=== PATIENT | female | born 1990 | race African-American/Black ===

== ENCOUNTER 2021-09-28 10:15 | Emergency (ER) | payer MEDICAID ==
[~2021-09-28] VITALS: Ht 165.1 cm; Wt 81.2 kg
[2021-09-28] VITALS (7 sets, daily range): BP systolic 113–146; BP diastolic 55–69
[2021-09-28] MEDS ORDERED: IV NORMAL SALINE 1000ML BAG 1,000 ML IV SCH (11:00)
[2021-09-28] MEDS ORDERED: ONDANSETRON PF 4 MG/2 ML VIAL. IVP ONE (11:00)
[2021-09-28] MEDS ORDERED: FAMOTIDINE 20 MG/2 ML VIAL IVP ONE (11:00)
[2021-09-28 11:04] LABS: BASO # 0.1 x10^3/uL (0.0-0.2); BASO % 1 % (0-3); EOS % 0 % (0-3); LYMPH # 1.8 x10^3/uL (1.0-4.8); LYMPH % 25 % (24-48); MEAN CORPUSCULAR HEMOGLOBIN 17 pg (25-35); MEAN CORPUSCULAR HGB CONC 28 g/dL (31-37); MEAN CORPUSCULAR VOLUME 59 fL (79-100); MONO # 0.7 x10^3/uL (0.0-1.1); MONO % 10 % (0-9); NEUT # 4.6 x10^3/uL (1.8-7.7); NEUT % 64 % (31-73); PLATELET COUNT 124 x10^3/uL (140-400); RED BLOOD COUNT 2.92 x10^6/uL (3.50-5.40); RED CELL DISTRIBUTION WIDTH 23.6 % (11.5-14.5); WHITE BLOOD COUNT 7.2 x10^3/uL (4.0-11.0)
--- NOTE | 2021-09-28 11:10 | PHYS DOC ---
Past Medical History Past Surgical History: No Surgical History Smoking Status: Never Smoker Alcohol Use: None General Adult EDM: Chief Complaint: NAUSEA/VOMITING/DIARRHEA HPI: HPI: Patient is a 31 year old female who presents with 2 days of nausea, vomiting, generalized weakness, shortness of air, cough with yellow mucus production and dizziness with standing. Denies any past medical history. States she does not smoke or do any kind of drug use. She is not vaccinated for Covid. She states she has not taken any medication to help treat her symptoms. Review of Systems: Review of Systems: Constitutional: Denies fever or chills. [] Eyes: Denies change in visual acuity. [] HENT: Denies nasal congestion or sore throat. [] Respiratory: + cough or +shortness of breath. [] Cardiovascular: Denies chest pain or edema. [] GI: Denies abdominal pain, +nausea, +vomiting, denies bloody stools or +diarrhea x1. [] : Denies dysuria. [] Musculoskeletal: Denies back pain or joint pain. + Generalized weakness [] Integument: Denies rash. [] Neurologic: Denies headache, focal weakness or sensory changes. + Dizziness w ith standing [] Endocrine: Denies polyuria or polydipsia. [] Lymphatic: Denies swollen glands. [] Psychiatric: Denies depression or anxiety. [] Heart Score: C/O Chest Pain: No HEART Score for Chest Pain: HEART Score for Chest Pain Response (Comments) Value History Slighlty/Non-Suspicious 0 ECG Nonspecific Repolarizatio 1 Age < 45 0 Risk Factors 1 or 2 Risk Factors 1 Troponin < Normal Limit 0 Total 2 Current Medications: Current Medications Medications (Trade) Dose Ordered Sig/Yumi Start Time Stop Time Status Last Admin Dose Admin Famotidine (Pepcid Vial) 20 mg 1X ONCE 09/28/21 11:00 09/28/21 11:01 UNV Ondansetron HCl (Zofran) 4 mg 1X ONCE 09/28/21 11:00 09/28/21 11:01 UNV Sodium Chloride 1,000 ml @ 1,000 mls/hr Q1H 09/28/21 11:00 09/28/21 11:59 UNV Physical Exam: PE: Constitutional: Well developed, well nourished, no acute distress, non-toxic appearance. [] HENT: Normocephalic, atraumatic, bilateral external ears normal, oropharynx moist, no oral exudates, nose normal. [] Eyes: PERRLA, EOMI, conjunctiva normal, no discharge. [] Neck: Normal range of motion, no tenderness, supple, no stridor. [] Cardiovascular:Heart rate regular rhythm, no murmur [] Lungs & Thorax: Bilateral upper breath sounds clear and lower diminished to auscultation [] Abdomen: Bowel sounds normal, soft, no tenderness, no masses, no pulsatile masses. [] Skin: Warm, dry, no erythema, no rash. [] Back: No tenderness, no CVA tenderness. [] Extremities: No tenderness, no cyanosis, no clubbing, ROM intact, no edema. [] Neurologic: Alert and oriented X 3, normal motor function, normal sensory function, no focal deficits noted. [] Psychologic: Affect normal, judgement normal, mood normal. [] Current Patient Data: Labs: Laboratory Tests Test 09/28/21 10:57 POC Urine HCG, Qualitative Hcg negative (Negative) Vital Signs: Vital Signs Date Time Temp Pulse Resp B/P (MAP) Pulse Ox O2 Delivery O2 Flow Rate FiO2 09/28/21 10:30 98.2 94 12 128/74 (92 100 Room Air 98.2 EKG: EK and read by Dr. Kingston as sinus rhythm with ST depression and T wave inversions inferiorly. No STEMI. Radiology/Procedures: Radiology/Procedures: [] Impression: [facility] [address] [place] [address] IMAGING REPORT Signed PATIENT: PORFIRIO BUTLER ACCOUNT: [id number] : 1990 LOCATION: ER AGE: 31 SEX: F EXAM STATUS: REG ER ORD. PHYSICIAN: SONAL LAMBERT APRN REASON: PRODUCTIVE COUGH WITH SOA PROCEDURE: PORTABLE CHEST 1V EXAM: AP View of the chest DATE: 09/28/2021 10:57 AM INDICATION: Reason: PRODUCTIVE COUGH WITH SOA / Spl. Instructions: / History: COMPARISON: No Prior FINDINGS: The heart is not enlarged. Mediastinal and hilar contours are normal. No focal parenchymal airspace opacity. No pleural effusion or pneumothorax. Curvature of the thoracolumbar spine. IMPRESSION: 1. No radiographic evidence for acute cardiopulmonary process. Electronically signed by: Judson Rubio MD (09/28/2021 11:46 AM) [facility] DICTATED and SIGNED BY: JUDSON RUBIO MD DATE: 09/28/21 [id number] [facility] [address] [place] [address] IMAGING REPORT Signed PATIENT: PORFIRIO BUTLER ACCOUNT: [id number] : 1990 LOCATION: ER AGE: 31 SEX: F EXAM STATUS: REG ER ORD. PHYSICIAN: SONAL LAMBERT APRN REASON: NAUSEA, VOMITING PROCEDURE: CT ABD PELV W/ IV CONTRST ONLY EXAM: CT Abdomen and Pelvis with IV contrast CLINICAL HISTORY: Reason: NAUSEA, VOMITING COMPARISON: none TECHNIQUE: Helical CT of the abdomen and pelvis was performed following the administration of intravenous contrast. Axial, coronal and sagittal reformatted images were generated. PQRS compliance statement - One or more of the following individualized dose reduction techniques were utilized for this study: 1. Automated exposure control 2. Adjustment of the mA and/or kV according to patient size 3. Use of iterative reconstruction technique FINDINGS: Lower Chest: Lung bases are clear. Abdomen and Pelvis: Liver, gallbladder, spleen and adrenal glands are unremarkable. Pancreas is normal. Symmetric nephrograms. No focal renal lesion. No hydronephrosis. No hydroureter. Bladder is unremarkable. Moderate colonic stool content is seen. No small or large bowel dilatation. Appendix is not convincingly seen. No pericecal inflammatory change. Uterus is enlarged with large peripherally calcified, likely uterine fibroid measuring approximately 6.6 cm. Right adnexal hypodense lesion measures 4.9 x 4.1 cm, possibly cystic. No abdominal or pelvic ascites. No abdominal or pelvic lymphadenopathy. Bones: No aggressive osseous lesion. IMPRESSION: Moderate colonic stool content. No bowel obstruction. 4.9 cm right adnexal lesion, possibly cystic and should be further assessed by ultrasound. Peripherally calcified uterine lesion likely uterine fibroid. Electronically signed by: Judson Rubio MD (09/28/2021 12:33 PM) [facility] DICTATED and SIGNED BY: JUDSON RUBIO MD DATE: 09/28/21 [id number] 0 Course & Med Decision Making: Course & Med Decision Making Pertinent Labs and Imaging studies reviewed. (See chart for details) COVID-19 CRITERIA: The patient was evaluated during the global COVID-19 pandemic, and that diagnosis was suspected/considered upon their initial presentation. Their evaluation, treatment and testing was consistent with current guidelines for patients who present with complaints or symptoms that may be related to COVID-19. See HPI. Alert and oriented x4. Speaks in full clear sentences. Skin pink warm and dry. Abdomen soft and nontender. Lungs are clear in upper lobes and diminished in lower lobes. Orthostatics normal. Patient hemoglobin is 4.8 and hematocrit 17.3. I went and spoke with patient she states she does have heavy periods right now with only very light. She states she does have fibroids. 2 Units of blood ordered. Covid Positive. Admitted to hospitalist. Patient received 1 unit of blood and half of the iron infusion and she is needing to leave to go pickle maker her children. Patient is signing out AMA. Dr. Montelongo did go in and speak with the patient and she understands that by leaving she risks , and or disability. She states her understanding of this. He states to have her sign out AMA. [] Mina Disclaimer: Mina Disclaimer: This electronic medical record was generated, in whole or in part, using a voice recognition dictation system. COVID-19 Patient Risks: Age 65 or older: No Sign of co-morbidity: Yes Exp to person + for COVID: No Exp to PUI: No Travel from affected area: No Lower respiratory symptoms: Yes Fever: No Other: Yes (N,V) PPE Use: Full PPE with N95 mask or PAPR: Yes Departure Departure Impression: Primary Impression: Anemia Qualified Codes: D64.9 - Anemia, unspecified Additional Impressions: COVID-19 Uterine fibroid Qualified Codes: D25.9 - Leiomyoma of uterus, unspecified Left against medical advice Disposition: LEFT AGAINST MEDICAL ADVICE Admitting Physician: HIMS Condition: STABLE Referrals: NO PCP (PCP) LEONARDA CARR MD Patient Instructions: Anemia, FAQs, Iron Deficiency Anemia, Uterine Fibroid, [id number] Additional Instructions: Follow-up with primary care or the visually impaired teacher I have referred you to. Or visually impaired teacher of your choosing. Plenty of fluids. Take medication with food. Scripts Ferrous Sulfate (IRON) 325 Mg Tablet 1 TAB PO BID for 30 Days, #60 TAB 0 Refills Prov: SONAL LAMBERT APRN 09/28/21 SONAL LAMBERT APRN Sep 28, 2021 11:10
[2021-09-28 11:14] LABS: CALCIUM 8.9 mg/dL (8.5-10.1); GFR 77.3; POTASSIUM 4.2 mmol/L (3.5-5.1)
[2021-09-28 11:14] LABS: BARBITURATES NEG (NEG); BENZODIAZEPINES NEG (NEG); BILIRUBIN,URINE NEGATIVE (NEG); CANNABINOIDS NEG (NEG); CLARITY,URINE CLEAR; COCAINE NEG (NEG); COLOR,URINE YELLOW; METHADONE NEG (NEG); NITRITE,URINE NEGATIVE (NEG); OPIATES NEG (NEG); PH,URINE 5.5 (<5.0-8.0); PHENCYCLIDINE NEG (NEG); PROTEIN,URINE 100 mg/dL (NEG-TRACE); UROBILINOGEN,URINE 0.2 mg/dL (0.2 mg/dL)
[2021-09-28 11:15] LABS: AMPHETAMINE/METHAMPHETAMINE NEG (NEG)
[2021-09-28 11:20] LABS: ALBUMIN 3.8 g/dL (3.4-5.0); ALBUMIN/GLOBULIN RATIO 0.8 (1.0-1.7); HEMATOCRIT 17.3 % (36.0-47.0); HEMOGLOBIN 4.8 g/dL (12.0-15.5); MAGNESIUM 2.4 mg/dL (1.8-2.4); TOTAL BILIRUBIN 0.2 mg/dL (0.2-1.0); TOTAL PROTEIN 8.5 g/dL (6.4-8.2)
[2021-09-28] MEDS ORDERED: IOHEXOL 300 MG/ML 100ML VIAL. IV ONE (11:30)
[2021-09-28] MEDS ORDERED: CONTRAST GIVEN. MC PRN (11:30)
[2021-09-28 11:33] LABS: BACTERIA,URINE FEW /HPF (0-FEW); WBC,URINE RARE /HPF (0-4)
--- NOTE | 2021-09-28 11:49 | RAD ---
EXAM: AP View of the chest DATE: 09/28/2021 10:57 AM INDICATION: Reason: PRODUCTIVE COUGH WITH SOA / Spl. Instructions: / History: COMPARISON: No Prior FINDINGS: The heart is not enlarged. Mediastinal and hilar contours are normal. No focal parenchymal airspace opacity. No pleural effusion or pneumothorax. Curvature of the thoracolumbar spine. IMPRESSION: 1. No radiographic evidence for acute cardiopulmonary process. Electronically signed by: Judson Philippe MD (09/28/2021 11:46 AM) [facility]
--- NOTE | 2021-09-28 12:35 | RAD ---
EXAM: CT Abdomen and Pelvis with IV contrast CLINICAL HISTORY: Reason: NAUSEA, VOMITING COMPARISON: none TECHNIQUE: Helical CT of the abdomen and pelvis was performed following the administration of intrave nous contrast. Axial, coronal and sagittal reformatted images were generated. PQRS compliance statement - One or more of the following individualized dose reduction techniques wer e utilized for this study: 1. Automated exposure control 2. Adjustment of the mA and/or kV according to patient size 3. Use of iterative reconstruction technique FINDINGS: Lower Chest: Lung bases are clear. Abdomen and Pelvis: Liver, gallbladder, spleen and adrenal glands are unremarkable. Pancreas is normal. Symmetric nephrograms. No focal renal lesion. No hydronephrosis. No hydroureter. Bladder is unremarka ble. Moderate colonic stool content is seen. No small or large bowel dilatation. Appendix is not convincin gly seen. No pericecal inflammatory change. Uterus is enlarged with large peripherally calcified, likely uterine fibroid measuring approximately 6.6 cm. Right adnexal hypodense lesion measures 4.9 x 4.1 cm, possibly cystic. No abdominal or pelvic ascites. No abdominal or pelvic lymphadenopathy. Bones: No aggressive osseous lesion. IMPRESSION: Moderate colonic stool content. No bowel obstruction. 4.9 cm right adnexal lesion, possibly cystic and should be further assessed by ultrasound. Peripherally calcified uterine lesion likely uterine fibroid. Electronically signed by: Judson Philippe MD (09/28/2021 12:33 PM) [facility]
[2021-09-28 12:47] LABS: PROTHROMBIN TIME PATIENT 13.6 SEC (11.7-14.0)
[2021-09-28 12:52] LABS: PLT ESTIMATE ADEQUATE (ADEQUATE)
[2021-09-28 12:53] LABS: ANISOCYTOSIS PRESENT; HYPOCHROMIA PRESENT; MICROCYTOSIS PRESENT; OVALOCYTES PRESENT
[2021-09-28] MEDS ORDERED: IRON SUCROSE COMPLEX 500 MG in IV NORMAL SALINE 250ML 250 ML IV ONE (14:00)
--- NOTE | 2021-09-28 14:51 | EKG ---
[facility] [address] [place] [address] Test Date: 2021-09-28 Test Time: 11:04:08 Pat Name: PORFIRIO BUTLER Department: Room: Gender: F [employer]earoom Hostess: : 1990 Requested By: SONAL LAMBERT Order Number: [id number] Reading MD: Lopez Mcgovern Measurements Intervals [place]y Rate: 83 P: 46 MD: 148 QRS: 11 QRSD: 90 T: -9 QT: 344 QTc: 405 Interpretive Statements SINUS RHYTHM T ABNORMALITY IN INFERIOR LEADS Electronically Signed On 09-30-2021 10:27:37 BUSINESS ARCHITECT by Lopez Mcgovern
--- NOTE | 2021-09-28 16:05 | PDOC1 ---
History and Physical Date of Admission Date of Admission DATE: 09/28/21 TIME: 16:03 Source Source: Chart review, Patient History of Present Illness History of Present Illness Ms. Ibarra is a 31 year old female who presents with 2 days of nausea, vomiting, generalized weakness, shortness of air, cough with yellow mucus production and dizziness with standing. Denies any past medical history. States she does not smoke or do any kind of drug use. She is not vaccinated for Covid. She states she has not taken any medication to help treat her symptoms. Past Medical History Cardiovascular: No pertinent hx Pulmonary: No pertinent hx GI: No pertinent hx Heme/Onc: No pertinent hx Past Surgical History Past Surgical History: No pertinent history Family History Family History: No Significant Social History Smoke: No ALCOHOL: none Drugs: None Current Problem List Problem List Problems Medical Problems: (1) Anemia Status: Acute (2) COVID-19 Status: Acute (3) Uterine fibroid Status: Acute Current Medications Current Medications Current Medications Sodium Chloride 1,000 ml @ 1,000 mls/hr Q1H IV Last administered on 09/28/21at 11:10; Start 09/28/21 at 11:00; Stop 09/28/21 at 11:59; Status DC Ondansetron HCl (Zofran) 4 mg 1X ONCE IVP Last administered on 09/28/21at 11:10; Start 09/28/21 at 11:00; Stop 09/28/21 at 11:05; Status DC Famotidine (Pepcid Vial) 20 mg 1X ONCE IVP Last administered on 09/28/21at 11:10; Start 09/28/21 at 11:00; Stop 09/28/21 at 11:05; Status DC Iohexol (Omnipaque 300 Mg/ml) 75 ml 1X ONCE IV Last administered on 09/28/21at 11:50; Start 09/28/21 at 11:30; Stop 09/28/21 at 11:31; Status DC Info (CONTRAST GIVEN -- Rx MONITORING) 1 each PRN DAILY PRN MC SEE COMMENTS; Start 09/28/21 at 11:30; Stop 09/30/21 at 11:29 Iron Sucrose 500 mg/Sodium Chloride 275 ml @ 78.571 mls/ hr 1X ONCE IV Last administered on 09/28/21at 14:02; Start 09/28/21 at 14:00; Stop 09/28/21 at 17:29 Allergies Allergies: Coded Allergies: Fish Containing Products (Verified Allergy, Unknown, 09/28/21) shellfish derived (Verified Allergy, Unknown, 09/28/21) Uncoded Allergies: SEAFOOD (Allergy, Unknown, UNKNOWN, 09/28/21) ROS General: YES: Fatigue, Malaise PSYCHOLOGICAL ROS: No: Anxiety, Behavioral Disorder, Concentration difficultie, Decreased libido, Depression, Disorientation, Hallucinations, Hostility, Irritablity, Memory difficulties, Mood Swings, Obsessive thoughts, Physical abuse, Sexual abuse, Sleep disturbances, Suicidal ideation, Other Eyes: No Blurry vision, No Decreased vision, No Double vision, No Dry eyes, No Excessive tearing, No Eye Pain, No Itchy Eyes, No Loss of vision, No Photophobia, No Scotomata, No Uses contacts, No Uses glasses, No Other HEENT: YES: Heacaches Respiratory: No: Cough, Hemoptysis, Orthopnea, Pleuritic Pain, Shortness of breath, SOB with excertion, Sputum Changes, Stridor, Tachypnea, Wheezing, Other Cardiovascular: No Chest Pain, No Palpitations, No Orthopnea, No Paroxysmal Noc. Dyspnea, No Edema, No Lt Headedness, No Other Gastrointestinal: No Nausea, No Vomiting, No Abdominal Pain, No Diarrhea, No Constipation, No Melena, No Hematochezia, No Other Genitourinary: No Dysuria, No Frequency, No Incontinence, No Hematuria, No Retention, No Discharge, No Urgency, No Pain, No Flank Pain, No Other, No , No , No , No , No , No , No Neurological: No Behavorial Changes, No Bowel/Bladder ControlChng, No Confusion, No Dizziness, No Gait Disturbance, No Headaches, No Impaired Coord/balance, No Memory Loss, No Numbness/Tingling, No Seizures, No Speech Problems, No Tremors, No Visual Changes, No Weakness, No Other Skin: No Dry Skin, No Eczema, No Hair Changes, No Lumps, No Mole Changes, No Mottling, No Nail Changes, No Pruritus, No Rash, No Skin Lesion Changes, No Other, No Acne Physical Exam General: Alert, Cooperative, mild distress HEENT: PERRLA Lungs: Clear to auscultation Rectal Exam: not examined Extremities: No clubbing, Normal pulses Neuro: Normal gait, Normal tone, Cranial nerves 3-12 NL Psych/Mental Status: Mood NL Vitals Vitals Vital Signs Date Time Temp Pulse Resp B/P (MAP) Pulse Ox O2 Delivery O2 Flow Rate FiO2 09/28/21 16:01 97.9 73 15 128/65 97.9 09/28/21 11:30 100 Room Air Labs Labs Laboratory Tests Test 09/28/21 10:40 09/28/21 10:55 09/28/21 10:57 09/28/21 11:17 Urine Collection Type Unknown Urine Color Yellow Urine Clarity Clear Urine pH 5.5 (<5.0-8.0) Urine Specific [place] 1.025 (1.000-1.030) Urine Protein 100 mg/dL (NEG-TRACE) Urine Glucose (UA) Negative mg/dL (NEG) Urine Ketones (Stick) Negative mg/dL (NEG) Urine Blood Moderate (NEG) Urine Nitrite Negative (NEG) Urine Bilirubin Negative (NEG) Urine Urobilinogen Dipstick 0.2 mg/dL (0.2 mg/dL) Urine Leukocyte Esterase Negative (NEG) Urine RBC 6-10 /HPF (0-2) Urine WBC Rare /HPF (0-4) Urine Squamous Epithelial Cells Few /LPF Urine Bacteria Few /HPF (0-FEW) Urine Mucus Slight /LPF Urine Opiates Screen Neg (NEG) Urine Methadone Screen Neg (NEG) Urine Barbiturates Neg (NEG) Urine Phencyclidine Screen Neg (NEG) Urine Amphetamine/Methamphetamine Neg (NEG) Urine Benzodiazepines Screen Neg (NEG) Urine Cocaine Screen Neg (NEG) Urine Cannabinoids Screen Neg (NEG) Urine Ethyl Alcohol Neg (NEG) White Blood Count 7.2 x10^3/uL (4.0-11.0) Red Blood Count 2.92 x10^6/uL (3.50-5.40) Hemoglobin 4.8 g/dL (12.0-15.5) Hematocrit 17.3 % (36.0-47.0) Mean Corpuscular Volume 59 fL (79-100) Mean Corpuscular Hemoglobin 17 pg (25-35) Mean Corpuscular Hemoglobin Concent 28 g/dL (31-37) Red Cell Distribution Width 23.6 % (11.5-14.5) Platelet Count 124 x10^3/uL (140-400) Neutrophils (%) (Auto) 64 % (31-73) Lymphocytes (%) (Auto) 25 % (24-48) Monocytes (%) (Auto) 10 % (0-9) Eosinophils (%) (Auto) 0 % (0-3) Basophils (%) (Auto) 1 % (0-3) Neutrophils # (Auto) 4.6 x10^3/uL (1.8-7.7) Lymphocytes # (Auto) 1.8 x10^3/uL (1.0-4.8) Monocytes # (Auto) 0.7 x10^3/uL (0.0-1.1) Eosinophils # (Auto) 0.0 x10^3/uL (0.0-0.7) Basophils # (Auto) 0.1 x10^3/uL (0.0-0.2) Platelet Estimate Adequate (ADEQUATE) Hypochromasia Present Anisocytosis Present Microcytosis Present Macrocytosis Present Ovalocytes Present Sodium Level 141 mmol/L (136-145) Potassium Level 4.2 mmol/L (3.5-5.1) Chloride Level 102 mmol/L (98-107) Carbon Dioxide Level 25 mmol/L (21-32) Anion Gap 14 (6-14) Blood Urea Nitrogen 12 mg/dL (7-20) Creatinine 1.0 mg/dL (0.6-1.0) Estimated GFR (Cockcroft-Gault) 77.3 BUN/Creatinine Ratio 12 (6-20) Glucose Level 108 mg/dL (70-99) Calcium Level 8.9 mg/dL (8.5-10.1) Magnesium Level 2.4 mg/dL (1.8-2.4) Iron Level 31 ug/dL (50-170) Total Iron Binding Capacity 475 ug/dL (250-450) Iron Saturation 7 % (15-34) Ferritin 13 ng/mL (8-252) Total Bilirubin 0.2 mg/dL (0.2-1.0) Aspartate Amino Transf (AST/SGOT) 26 U/L (15-37) Alanine Aminotransferase (ALT/SGPT) 21 U/L (14-59) Alkaline Phosphatase 62 U/L (46-116) Total Protein 8.5 g/dL (6.4-8.2) Albumin 3.8 g/dL (3.4-5.0) Albumin/Globulin Ratio 0.8 (1.0-1.7) Lipase 53 U/L (73-393) Bedside Urine HCG, Qualitative Hcg negative (Negative) SARS-CoV-2 Antigen (Rapid) Positive (NEGATIVE) Test 09/28/21 11:18 09/28/21 12:15 Troponin I High Sensitivity 7 ng/L (4-50) Prothrombin Time 13.6 SEC (11.7-14.0) Prothromb Time International Ratio 1.0 (0.8-1.1) Activated Partial Thromboplast Time 25 SEC (24-38) Laboratory Tests Test 09/28/21 10:40 09/28/21 10:55 09/28/21 10:57 09/28/21 11:17 Urine Collection Type Unknown Urine Color Yellow Urine Clarity Clear Urine pH 5.5 (<5.0-8.0) Urine Specific [place] 1.025 (1.000-1.030) Urine Protein 100 mg/dL (NEG-TRACE) Urine Glucose (UA) Negative mg/dL (NEG) Urine Ketones (Stick) Negative mg/dL (NEG) Urine Blood Moderate (NEG) Urine Nitrite Negative (NEG) Urine Bilirubin Negative (NEG) Urine Urobilinogen Dipstick 0.2 mg/dL (0.2 mg/dL) Urine Leukocyte Esterase Negative (NEG) Urine RBC 6-10 /HPF (0-2) Urine WBC Rare /HPF (0-4) Urine Squamous Epithelial Cells Few /LPF Urine Bacteria Few /HPF (0-FEW) Urine Mucus Slight /LPF Urine Opiates Screen Neg (NEG) Urine Methadone Screen Neg (NEG) Urine Barbiturates Neg (NEG) Urine Phencyclidine Screen Neg (NEG) Urine Amphetamine/Methamphetamine Neg (NEG) Urine Benzodiazepines Screen Neg (NEG) Urine Cocaine Screen Neg (NEG) Urine Cannabinoids Screen Neg (NEG) Urine Ethyl Alcohol Neg (NEG) White Blood Count 7.2 x10^3/uL (4.0-11.0) Red Blood Count 2.92 x10^6/uL (3.50-5.40) Hemoglobin 4.8 g/dL (12.0-15.5) Hematocrit 17.3 % (36.0-47.0) Mean Corpuscular Volume 59 fL (79-100) Mean Corpuscular Hemoglobin 17 pg (25-35) Mean Corpuscular Hemoglobin Concent 28 g/dL (31-37) Red Cell Distribution Width 23.6 % (11.5-14.5) Platelet Count 124 x10^3/uL (140-400) Neutrophils (%) (Auto) 64 % (31-73) Lymphocytes (%) (Auto) 25 % (24-48) Monocytes (%) (Auto) 10 % (0-9) Eosinophils (%) (Auto) 0 % (0-3) Basophils (%) (Auto) 1 % (0-3) Neutrophils # (Auto) 4.6 x10^3/uL (1.8-7.7) Lymphocytes # (Auto) 1.8 x10^3/uL (1.0-4.8) Monocytes # (Auto) 0.7 x10^3/uL (0.0-1.1) Eosinophils # (Auto) 0.0 x10^3/uL (0.0-0.7) Basophils # (Auto) 0.1 x10^3/uL (0.0-0.2) Platelet Estimate Adequate (ADEQUATE) Hypochromasia Present Anisocytosis Present Microcytosis Present Macrocytosis Present Ovalocytes Present Sodium Level 141 mmol/L (136-145) Potassium Level 4.2 mmol/L (3.5-5.1) Chloride Level 102 mmol/L (98-107) Carbon Dioxide Level 25 mmol/L (21-32) Anion Gap 14 (6-14) Blood Urea Nitrogen 12 mg/dL (7-20) Creatinine 1.0 mg/dL (0.6-1.0) Estimated GFR (Cockcroft-Gault) 77.3 BUN/Creatinine Ratio 12 (6-20) Glucose Level 108 mg/dL (70-99) Calcium Level 8.9 mg/dL (8.5-10.1) Magnesium Level 2.4 mg/dL (1.8-2.4) Iron Level 31 ug/dL (50-170) Total Iron Binding Capacity 475 ug/dL (250-450) Iron Saturation 7 % (15-34) Ferritin 13 ng/mL (8-252) Total Bilirubin 0.2 mg/dL (0.2-1.0) Aspartate Amino Transf (AST/SGOT) 26 U/L (15-37) Alanine Aminotransferase (ALT/SGPT) 21 U/L (14-59) Alkaline Phosphatase 62 U/L (46-116) Total Protein 8.5 g/dL (6.4-8.2) Albumin 3.8 g/dL (3.4-5.0) Albumin/Globulin Ratio 0.8 (1.0-1.7) Lipase 53 U/L (73-393) Bedside Urine HCG, Qualitative Hcg negative (Negative) SARS-CoV-2 Antigen (Rapid) Positive (NEGATIVE) Test 09/28/21 11:18 09/28/21 12:15 Troponin I High Sensitivity 7 ng/L (4-50) Prothrombin Time 13.6 SEC (11.7-14.0) Prothromb Time International Ratio 1.0 (0.8-1.1) Activated Partial Thromboplast Time 25 SEC (24-38) VTE Prophylaxis Ordered VTE Prophylaxis Devices: No VTE Pharmacological Prophylaxi: No Assessment/Plan Assessment/Plan COVID 19 - not vaccinated symptomatic anemia, iron def. 2 u prbc and 500 iv iron ordered she has asked to leave AMA, her 3 and 6 year old kids need care, her Exs mom cannot watch them much longer 15 min discussion Justifications for Admission Other Justification LESA VALDEZ MD Sep 28, 2021 16:05
[2021-09-28] MEDS ORDERED: FERR-36 PO (16:08)
== END 2021-09-28 16:13 | disposition left against medical advice (07) ==
LOC: ER 10:15
DX: U07.1 COVID-19 (principal); D25.9 Leiomyoma of uterus, unspecified; D64.9 Anemia, unspecified
CPT/HCPCS: 36415; 36430; 71045; 74177; 80053; 80307; 81001; 81025; 82728; 83540; 83550; 83690; 83735; 84484; 85025; 85610; 85730; 86850; 86900; 86901; 86920; 87426; 93005; 96361; 96365; 96366; 96375; 99285; J1756; J2405; J3490; J7030; J7050; P9016; Q9967

== ENCOUNTER 2022-02-13 18:51 | Inpatient (IN) | payer SELFPAY ==
[~2022-02-13] VITALS: Ht 165.1 cm; Wt 59.0 kg
[~2022-02-13 18:51] MED LIST: FERR-36 PO
[2022-02-13 20:56] LABS: BASO # 0.1 x10^3/uL (0.0-0.2); BASO % 1 % (0-3); EOS # 0.1 x10^3/uL (0.0-0.7); EOS % 1 % (0-3); HEMATOCRIT 22.9 % (36.0-47.0); LYMPH # 1.8 x10^3/uL (1.0-4.8); LYMPH % 27 % (24-48); MEAN CORPUSCULAR HEMOGLOBIN 19 pg (25-35); MEAN CORPUSCULAR HGB CONC 29 g/dL (31-37); MEAN CORPUSCULAR VOLUME 65 fL (79-100); MONO # 0.5 x10^3/uL (0.0-1.1); MONO % 7 % (0-9); NEUT # 4.3 x10^3/uL (1.8-7.7); NEUT % 64 % (31-73); PLATELET COUNT 188 x10^3/uL (140-400); RED BLOOD COUNT 3.54 x10^6/uL (3.50-5.40); RED CELL DISTRIBUTION WIDTH 22.8 % (11.5-14.5); WHITE BLOOD COUNT 6.8 x10^3/uL (4.0-11.0)
[2022-02-13 21:00] LABS: HEMOGLOBIN 6.6 g/dL (12.0-15.5)
[2022-02-13 21:09] LABS: CALCIUM 8.7 mg/dL (8.5-10.1); GFR 77.3; POTASSIUM 3.2 mmol/L (3.5-5.1)
[2022-02-13 21:29] LABS: ANISOCYTOSIS MOD; HYPOCHROMIA MOD; MICROCYTOSIS SLIGHT; PLT ESTIMATE ADEQUATE (ADEQUATE)
--- NOTE | 2022-02-13 22:23 | RAD ---
Transvaginal zone. The HISTORY: Bleeding Transvaginal examination was performed and multiple static images were obtained. The endometrium measures 1.5 cm in thickness. There is a yolk sac and gestational sac but no po le. The mean sac diameter of 6.1 mm corresponds with a 5 week 2 day gestational age and estimated chyna e confinement of October 14, 2022. The LMP of December 23, 2021 corresponds with a 7 week 3 day gestational age and estimated date of confi nement of 09/29/2022. The left ovary measures 1.3 x 3. 2.4 cm and has normal blood flow. There is a 1.9 x 0.9 x 1.2 cm cyst which could be a corpus luteal cyst. There is a shadowing mass in the uterus and measures 5.8 x 6.8 x 7.0 cm. The right ovary is not seen. IMPRESSION: 1. Early intrauterine . If the continues a short-term follow-up ultrasound could b e performed when the patient is 6 weeks order to document a viable intrauterine . A structural survey can be performed at 18-21 weeks gestational age. 2. Calcified fibroid in the uterus. Electronically signed by: Tl Thomas III, MD (02/13/2022 10:21 PM) [facility]
--- NOTE | 2022-02-13 22:52 | PHYS DOC ---
Past Medical History Past Surgical History: No Surgical History Smoking Status: Never Smoker Alcohol Use: None General Adult EDM: Chief Complaint: VAGINAL BLEEDING HPI: HPI: 31-year-old female presents with vaginal spotting. States that she saw dark brownish spotting 1 time when she wiped today. States that she has had a positive test at home but has not yet had a formal ultrasound. No abdominal pain nausea or vomiting. Some fatigue but no significant shortness of breath or chest pain. Denies any significant past medical history. . Review of Systems: Review of Systems: Constitutional: Positive for fatigue Eyes: Denies change in visual acuity. [] HENT: Denies nasal congestion or sore throat. [] Respiratory: Denies cough or shortness of breath. [] Cardiovascular: Denies chest pain or edema. [] GI: Denies abdominal pain, nausea, vomiting, bloody stools or diarrhea. [] : Denies dysuria. [] Musculoskeletal: Denies back pain or joint pain. [] Integument: Denies rash. [] Neurologic: Denies headache, focal weakness or sensory changes. [] Endocrine: Denies polyuria or polydipsia. [] Lymphatic: Denies swollen glands. [] Psychiatric: Denies depression or anxiety. [] Heart Score: C/O Chest Pain: No Risk Factors: Risk Factors: DM, Current or recent (<one month) smoker, HTN, HLP, family history of CAD, obesity. Risk Scores: Score 0 - 3: 2.5% MACE over next 6 weeks - Discharge Home Score 4 - 6: 20.3% MACE over next 6 weeks - Admit for Clinical Observation Score 7 - 10: 72.7% MACE over next 6 weeks - Early Invasive Strategies Allergies: Allergies: Allergies Coded Allergies Type Severity Reaction Last Updated Verified Fish Containing Products Allergy Unknown 09/28/21 Yes shellfish derived Allergy Unknown 09/28/21 Yes Uncoded Allergies Type Severity Reaction Last Updated Verified SEAFOOD Allergy Unknown UNKNOWN 09/28/21 Physical Exam: PE: Constitutional: Well developed, well nourished, no acute distress, non-toxic appearance. [] HENT: Normocephalic, atraumatic, bilateral external ears normal, oropharynx moist, no oral exudates, nose normal. [] Eyes: PERRLA, EOMI, conjunctiva normal, no discharge. [] Neck: Normal range of motion, no tenderness, supple, no stridor. [] Cardiovascular:Heart rate regular rhythm, no murmur [] Lungs & Thorax: Bilateral breath sounds clear to auscultation [] Abdomen: Bowel sounds normal, soft, no tenderness, no masses, no pulsatile masses. [] Skin: Warm, dry, no erythema, no rash. [] Back: No tenderness, no CVA tenderness. [] Extremities: No tenderness, no cyanosis, no clubbing, ROM intact, no edema. [] Neurologic: Alert and oriented X 3, normal motor function, normal sensory function, no focal deficits noted. [] Psychologic: Affect normal, judgement normal, mood normal. [] Current Patient Data: Labs: Laboratory Tests Test 02/13/22 20:45 White Blood Count 6.8 x10^3/uL (4.0-11.0) Red Blood Count 3.54 x10^6/uL (3.50-5.40) Hemoglobin 6.6 g/dL (12.0-15.5) *L Hematocrit 22.9 % (36.0-47.0) L Mean Corpuscular Volume 65 fL (79-100) L Mean Corpuscular Hemoglobin 19 pg (25-35) L Mean Corpuscular Hemoglobin Concent 29 g/dL (31-37) L Red Cell Distribution Width 22.8 % (11.5-14.5) H Platelet Count 188 x10^3/uL (140-400) Neutrophils (%) (Auto) 64 % (31-73) Lymphocytes (%) (Auto) 27 % (24-48) Monocytes (%) (Auto) 7 % (0-9) Eosinophils (%) (Auto) 1 % (0-3) Basophils (%) (Auto) 1 % (0-3) Neutrophils # (Auto) 4.3 x10^3/uL (1.8-7.7) Lymphocytes # (Auto) 1.8 x10^3/uL (1.0-4.8) Monocytes # (Auto) 0.5 x10^3/uL (0.0-1.1) Eosinophils # (Auto) 0.1 x10^3/uL (0.0-0.7) Basophils # (Auto) 0.1 x10^3/uL (0.0-0.2) Platelet Estimate Adequate (ADEQUATE) Hypochromasia Mod Anisocytosis Mod Microcytosis Slight Maternal Serum HCG Beta Subunit 939 mIU/mL (0-5) H Sodium Level 143 mmol/L (136-145) Potassium Level 3.2 mmol/L (3.5-5.1) L Chloride Level 107 mmol/L (98-107) Carbon Dioxide Level 26 mmol/L (21-32) Anion Gap 10 (6-14) Blood Urea Nitrogen 8 mg/dL (7-20) Creatinine 1.0 mg/dL (0.6-1.0) Estimated GFR (Cockcroft-Gault) 77.3 Glucose Level 90 mg/dL (70-99) Calcium Level 8.7 mg/dL (8.5-10.1) Laboratory Tests 02/13/22 20:45 Laboratory Tests 02/13/22 20:45 Vital Signs: Vital Signs Date Time Temp Pulse Resp B/P (MAP) Pulse Ox O2 Delivery O2 Flow Rate FiO2 02/13/22 19:49 98.3 69 20 123/64 (83) 100 Room Air 98.3 EKG: EKG: [] Radiology/Procedures: Radiology/Procedures: [] Course & Med Decision Making: Course & Med Decision Making Pertinent Labs and Imaging studies reviewed. (See chart for details) Given that she is and her hemoglobin is less than 7 I will admit the patient for blood transfusion. Her vital signs are stable. Dragon Disclaimer: Dragon Disclaimer: This electronic medical record was generated, in whole or in part, using a voice recognition dictation system. Departure Departure Impression: Primary Impression: Anemia Additional Impression: Intrauterine Disposition: ADMITTED INPATIENT Condition: STABLE Referrals: NO PCP (PCP) SERINA MONTES MD February 13, 2022 22:52
[2022-02-13 23:56] VITALS: BP 129/65
[2022-02-14 02:47] VITALS: BP 124/57
[2022-02-14 05:20] VITALS: BP 138/75
== END 2022-02-14 05:30 | disposition left against medical advice (07) | DRG 833 ==
LOC: ER 18:51 → 3 SO LND 02-14 00:47
PROVIDERS: ADMIT Internal Medicine; ATTEND Internal Medicine
PROC: 30233N1 Transfusion of Nonautologous Red Blood Cells into Peripheral Vein, Percutaneous Approach (ICD-10-PCS; principal; 2022-02-14)
DX: O99.011 Anemia complicating pregnancy, first trimester (principal); O26.851 Spotting complicating pregnancy, first trimester; D64.9 Anemia, unspecified; Z88.8 Allergy status to other drugs, medicaments and biological substances; Z91.013 Allergy to seafood; Z3A.01 Less than 8 weeks gestation of pregnancy
CPT/HCPCS: 36415; 36430; 76801; 76817; 80048; 84702; 85025; 86850; 86900; 86901; 86920; G0378; P9016; 99285-25

== ENCOUNTER 2022-02-17 12:43 | Emergency (ER) | payer SELFPAY ==
[~2022-02-17] VITALS: Ht 165.1 cm; Wt 81.6 kg
[2022-02-17 13:17] LABS: BASO # 0.1 x10^3/uL (0.0-0.2); BASO % 2 % (0-3); EOS # 0.1 x10^3/uL (0.0-0.7); EOS % 2 % (0-3); HEMATOCRIT 32.7 % (36.0-47.0); HEMOGLOBIN 9.6 g/dL (12.0-15.5); LYMPH # 2.4 x10^3/uL (1.0-4.8); LYMPH % 30 % (24-48); MEAN CORPUSCULAR HEMOGLOBIN 21 pg (25-35); MEAN CORPUSCULAR HGB CONC 29 g/dL (31-37); MEAN CORPUSCULAR VOLUME 71 fL (79-100); MONO # 0.5 x10^3/uL (0.0-1.1); MONO % 7 % (0-9); NEUT # 4.8 x10^3/uL (1.8-7.7); NEUT % 60 % (31-73); PLATELET COUNT 206 x10^3/uL (140-400); RED BLOOD COUNT 4.62 x10^6/uL (3.50-5.40); RED CELL DISTRIBUTION WIDTH 28.1 % (11.5-14.5); WHITE BLOOD COUNT 7.9 x10^3/uL (4.0-11.0)
--- NOTE | 2022-02-17 13:18 | PHYS DOC ---
Past Medical History Past Medical History: Anemia Past Surgical History: No Surgical History Smoking Status: Never Smoker Alcohol Use: None General Adult EDM: Chief Complaint: VAGINAL BLEEDING HPI: HPI: Patient is a 31-year-old female who presents today with vaginal bleeding. Patient states the last 24 hours she is going through 1 pad during a 24-hour period, she states that she is approximately 7 to 8 weeks . I reviewed patient's medical records patient was here on February 13, 2022 and was seen and evaluated for vaginal bleeding, it was noted that she had a hemoglobin of 6.5, patient was admitted to the inpatient service and given 1 unit of blood while here in the emergency department, patient signed out AGAINST MEDICAL ADVICE before the patient could be transferred to the floor, she stated that she had no care for her 2 small children and that she had to take the home and homeschool them. Patient also reports today that she is having increased dizziness and weakness and fatigue as well. Patient again states that she has an [facility] appointment in the first week of February for further evaluation and management of this . Patient does have her 2 small children with her today, she states she is unable to get any help caring for them at this time, she is trying to call family members to come and get them. AB1 Review of Systems: Review of Systems: Constitutional: Denies fever or chills. [] Eyes: Denies change in visual acuity. [] HENT: Denies nasal congestion or sore throat. [] Respiratory: Denies cough or shortness of breath. [] Cardiovascular: Denies chest pain or edema. [] GI: Denies abdominal pain, nausea, vomiting, bloody stools or diarrhea. [] GUyGYN: Vaginal bleeding Musculoskeletal: Denies back pain or joint pain. [] Integument: Denies rash. [] Neurologic: Denies headache, focal weakness or sensory changes. [] Endocrine: Denies polyuria or polydipsia. [] Lymphatic: Denies swollen glands. [] Psychiatric: Denies depression or anxiety. [] Heart Score: C/O Chest Pain: No Risk Factors: Risk Factors: DM, Current or recent (<one month) smoker, HTN, HLP, family history of CAD, obesity. Risk Scores: Score 0 - 3: 2.5% MACE over next 6 weeks - Discharge Home Score 4 - 6: 20.3% MACE over next 6 weeks - Admit for Clinical Observation Score 7 - 10: 72.7% MACE over next 6 weeks - Early Invasive Strategies Allergies: Allergies: Allergies Coded Allergies Type Severity Reaction Last Updated Verified Fish Containing Products Allergy Severe 02/14/22 Yes shellfish derived Allergy Severe 02/14/22 Yes Physical Exam: PE: Constitutional: Well developed, well nourished, no acute distress, non-toxic appearance. [] HENT: Normocephalic, atraumatic, bilateral external ears normal, oropharynx moist, no oral exudates, nose normal. [] Eyes: PERRLA, EOMI, conjunctiva normal, no discharge. [] Neck: Normal range of motion, no tenderness, supple, no stridor. [] Cardiovascular:Heart rate regular rhythm, no murmur [] Lungs & Thorax: Bilateral breath sounds clear to auscultation [] Abdomen: Bowel sounds normal, soft, no tenderness, no masses, no pulsatile masses. [] Skin: Warm, dry, no erythema, no rash. [] Back: No tenderness, no CVA tenderness. [] Extremities: No tenderness, no cyanosis, no clubbing, ROM intact, no edema. [] Neurologic: Alert and oriented X 3, normal motor function, normal sensory function, no focal deficits noted. [] Psychologic: Affect normal, judgement normal, mood normal. [] Current Patient Data: Labs: Type and Screen O+ Laboratory Tests Test 02/17/22 13:06 02/17/22 13:40 White Blood Count 7.9 x10^3/uL Red Blood Count 4.62 x10^6/uL Hemoglobin 9.6 g/dL Hematocrit 32.7 % Mean Corpuscular Volume 71 fL Mean Corpuscular Hemoglobin 21 pg Mean Corpuscular Hemoglobin Concent 29 g/dL Red Cell Distribution Width 28.1 % Platelet Count 206 x10^3/uL Neutrophils (%) (Auto) 60 % Lymphocytes (%) (Auto) 30 % Monocytes (%) (Auto) 7 % Eosinophils (%) (Auto) 2 % Basophils (%) (Auto) 2 % Neutrophils # (Auto) 4.8 x10^3/uL Lymphocytes # (Auto) 2.4 x10^3/uL Monocytes # (Auto) 0.5 x10^3/uL Eosinophils # (Auto) 0.1 x10^3/uL Basophils # (Auto) 0.1 x10^3/uL Maternal Serum HCG Beta Subunit 121 mIU/mL Sodium Level 142 mmol/L Potassium Level 3.9 mmol/L Chloride Level 109 mmol/L Carbon Dioxide Level 26 mmol/L Anion Gap 7 Blood Urea Nitrogen 8 mg/dL Creatinine 0.9 mg/dL Estimated GFR (Cockcroft-Gault) 87.3 BUN/Creatinine Ratio 9 Glucose Level 72 mg/dL Calcium Level 9.0 mg/dL Total Bilirubin 0.2 mg/dL Aspartate Amino Transf (AST/SGOT) 14 U/L Alanine Aminotransferase (ALT/SGPT) 20 U/L Alkaline Phosphatase 71 U/L Total Protein 7.2 g/dL Albumin 3.2 g/dL Albumin/Globulin Ratio 0.8 Current Medications Medications (Trade) Dose Ordered Sig/Yumi Route PRN Reason Start Time Stop Time Status Last Admin Dose Admin Sodium Chloride 1,000 ml @ 999 mls/hr 1X ONCE IV 02/17/22 14:00 02/17/22 15:00 02/17/22 14:04 Vital Signs: Vital Signs Date Time Temp Pulse Resp B/P (MAP) Pulse Ox O2 Delivery O2 Flow Rate FiO2 02/17/22 13:04 98.0 87 18 163/80 (107) 99 Room Air 98.0 EKG: EKG: [] Radiology/Procedures: Radiology/Procedures: REASON: vaginal bleeding and PROCEDURE: OB <14 WKS W/TV INDICATION: Reason: vaginal bleeding and / Spl. Instructions: / History: COMPARISON: February 13, 2022 TECHNIQUE: Grayscale and color ultrasound images uterus and adnexa. Transabdominal and transvaginal images obtained. Transvaginal images were needed to better visualize structures that were limited on transabdominal imaging. FINDINGS: Uterus: 130 x 80 x 80 mm. 67 mm calcified uterine mass. No definite intrauterine gestational sac. Right Ovary: 30 x 10 x 9 mm. Left Ovary: 34 x 22 x 18 mm. Vascular flow identified to bilateral ovaries. 17 x 9 mm dominant follicle left ovary. IMPRESSION: * No intrauterine gestational sac is seen which could be from a failed early . * Calcified fibroid again seen. Electronically signed by: Lupe Acharya MD (02/17/2022 2:24 PM) [email or web address] DICTATED and SIGNED BY: LUPE ACHARYA MD DATE: 02/17/22 1419[] Course & Med Decision Making: Course & Med Decision Making Pertinent Labs and Imaging studies reviewed. (See chart for details) 3990 I spoke to patient regarding laboratory and radiological results from today , I did inform her that there was no intrauterine seen on the ultrasound and that her quantitative hcg was going down it went from 900s to 121 today. Patient states she has had some large clots passage over the last couple of days and I informed her that during that time she could have passed the gestational sac. Patient is to follow-up with her [facility] this week for fur ther evaluation and management of her miscarriage, she will need a repeat beta hCG in 72 hours. Patient verbalizes understanding of this, patient was also informed to return here to the emergency department should she have increased vaginal bleeding where she saturates 2 pads an hour for 2 straight hours, or she has a fainting episode, she feels dizzy or lightheaded or develops a fever. Dragon Disclaimer: Dragon Disclaimer: This electronic medical record was generated, in whole or in part, using a voice recognition dictation system. Departure Departure Impression: Primary Impression: Complete miscarriage Disposition: HOME / SELF CARE / HOMELESS Condition: STABLE Referrals: NO PCP (PCP) LEONARDA CARR MD Patient Instructions: Miscarriage Additional Instructions: Continue to take your vitamins Continue to increase your by mouth fluids and eat healthy meals throughout the day Tylenol and/or ibuprofen as needed for pain Follow-up with [facility] this week to have your blood redrawn your current beta-hCG is 121 Return to the emergency department should you have increased vaginal bleeding where you are going through 2 pads an hour for 2 straight hours, you have dizziness or fainting, or you develop a fever, [facility] [address] [place] [address] [facility] [address] [place], [place] [id number] [facility] [address] [facility] [place] [address] [facility] [address] [place] [address] [facility] [address] [place] [address] [facility] [address] [place] [address] [address] [address] [place] [address] [facility] [address] [place] [address] [facility] [address] [place] [address] [facility] [address] [place] [address] [facility] [employer] [facility] February 17, 2022 13:18
[2022-02-17 13:57] LABS: CREATININE 0.9 mg/dL (0.6-1.0); GFR 87.3; POTASSIUM 3.9 mmol/L (3.5-5.1)
[2022-02-17 14:03] LABS: ALBUMIN 3.2 g/dL (3.4-5.0); ALBUMIN/GLOBULIN RATIO 0.8 (1.0-1.7); TOTAL BILIRUBIN 0.2 mg/dL (0.2-1.0); TOTAL PROTEIN 7.2 g/dL (6.4-8.2)
[2022-02-17] MEDS: IV NORMAL SALINE 1000ML BAG 1,000 ML IV ONE (14:04)
--- NOTE | 2022-02-17 14:26 | RAD ---
INDICATION: Reason: vaginal bleeding and / Spl. Instructions: / History: COMPARISON: February 13, 2022 TECHNIQUE: Grayscale and color ultrasound images uterus and adnexa. Transabdominal and transvaginal images obtained. Transvaginal images were needed to better visualize structures that were limited on transabdominal imaging. FINDINGS: Uterus: 130 x 80 x 80 mm. 67 mm calcified uterine mass. No definite intrauterine gestational sac. Right Ovary: 30 x 10 x 9 mm. Left Ovary: 34 x 22 x 18 mm. Vascular flow identified to bilateral ovaries. 17 x 9 mm dominant follicle left ovary. IMPRESSION: * No intrauterine gestational sac is seen which could be from a failed early . * Calcified fibroid again seen. Electronically signed by: Riley Ely MD (02/17/2022 2:24 PM) [email or web address]
[2022-02-17 14:27] VITALS: BP 145/74
== END 2022-02-17 15:25 | disposition home or self-care (01) ==
LOC: ER 12:43
DX: O03.9 Complete or unspecified spontaneous abortion without complication (principal); Z91.013 Allergy to seafood
CPT/HCPCS: 36415; 76801; 76817; 80053; 84702; 85025; 86850; 86900; 86901; 96360; 99284; J7030